=== PATIENT | female | born 1970 | race Caucasian/White ===

== ENCOUNTER 2024-05-13 00:08 | Emergency (ER) | payer MEDICARE, OTHER ==
[~2024-05-13] VITALS: Ht 167.6 cm; Wt 100.0 kg
[2024-05-13 00:18] VITALS: O2SAT 92
[2024-05-13] MEDS: MORPHINE SULFATE 2 MG/ML INJ (NOT FOR IM USE) IV ONE ×2 (02:12→09:26)
[2024-05-13] MEDS: TETANUS, DIPHTHERIA, PERTUSSIS VAC/PF 0.5ML (>10YR OLD) IM ONE (02:16)
[2024-05-13] MEDS: ACETAMINOPHEN 325MG TABLET PO ONE (02:16)
[2024-05-13] MEDS: BACITRACIN ZINC OINT UDPKT TOP ONE (02:26)
[2024-05-13] MEDS: LIDOCAINE HCL/PF 1% 10 MG/ML 5ML VIAL INFIL ONE ×2 (02:26→02:30)
[2024-05-13] MEDS: SODIUM CHLORIDE 0.9% 1,000 ML IV ONE (03:39)
[2024-05-13] MEDS: MORPHINE SULFATE 4 MG/ML INJ (FOR IV/IM USE) IV ONE (03:39)
[2024-05-13] MEDS: CLINDAMYCIN 600MG PREMIX 50 ML IV ONE (03:47)
[2024-05-13 04:00] LABS: CHLORIDE 108 mEq/L (98-107); POTASSIUM 4.2 mEq/L (3.5-5.1); SODIUM 138 mEq/L (136-145)
[2024-05-13 04:01] LABS: CARBON DIOXIDE 22 mEq/L (21-32)
[2024-05-13 04:02] LABS: CALCIUM 9.4 mg/dL (8.7-10.4)
[2024-05-13 04:06] LABS: GLUCOSE 98 mg/dL (70-105); UREA NITROGEN BLOOD 18 mg/dL (9-23)
[2024-05-13 04:08] LABS: ALANINE AMINOTRANSFERASE 17 IU/L (10-49); ALBUMIN 4.5 g/dL (3.2-4.8); ASPARTATE AMINOTRANSFERASE 16 IU/L (<34)
[2024-05-13 04:09] LABS: BILIRUBIN TOTAL 0.3 mg/dL (0.1-1.0); PROTEIN TOTAL 6.7 g/dL (6.0-8.3)
[2024-05-13 05:17] LABS: CREATININE 1.1 mg/dL (0.6-1.0)
[2024-05-13] MEDS ORDERED: CLIN-194 MT (06:24)
[2024-05-13 06:27] LABS: HEMATOCRIT. 34.5 % (36.0-48.0); HEMOGLOBIN. 11.2 g/dL (12.0-16.0); MEAN CORPUSCULAR HEMOGLOBIN 27.4 pg (28.0-32.0); MEAN CORPUSCULAR HGB CONC 32.4 g/dL (31.0-37.0); MEAN CORPUSCULAR VOLUME 84.5 fL (81.0-99.0); MEAN PLATELET VOLUME 8.4 fl (7.4-10.4); PLATELET 269 x1000/uL (130-400); RED BLOOD CELL COUNT 4.08 mill/uL (4.2-5.4); RED CELL DISTRIBUTION WIDTH 15.6 % (11.6-14.6); WHITE BLOOD COUNT 9.1 x1000/uL (4.5-11.0)
[2024-05-13 06:30] VITALS: TEMP 36.61404
[2024-05-13 06:37] LABS: DIFFERENTIAL COMMENT 1
[2024-05-13 10:10] LABS: PLATELET ESTIMATE NORMAL
[2024-05-13 10:30] VITALS: BP 101/56; PULSE 82; RESP 20; O2SAT 95
== END 2024-05-13 11:14 ==
LOC: ER 00:08
DX: L02.11 Cutaneous abscess of neck (principal); F10.20 Alcohol dependence, uncomplicated; D64.9 Anemia, unspecified; F41.9 Anxiety disorder, unspecified; K21.9 Gastro-esophageal reflux disease without esophagitis; I10 Essential (primary) hypertension; F20.9 Schizophrenia, unspecified; Z88.2 Allergy status to sulfonamides; Z88.8 Allergy status to other drugs, medicaments and biological substances
CPT/HCPCS: 99284; 96365; 10060; 71045; 96366; 96375; 80053; 85025; 87040; 87070; 87205; 36415; 90715; 96376; J3490 ×2; J2270 ×2; J7030